=== PATIENT | male | born 1955 | race Caucasian/White ===

== ENCOUNTER 2016-12-16 17:45 | Emergency (ER) | payer MEDICARE ==
[~2016-12-16] VITALS: Ht 180.3 cm; Wt 83.4 kg
[~2016-12-16 17:45] MED LIST: ASPIRIN EC325 MG PO; ATORVASTATIN CA20 MG; ATORVASTATIN CA40 MG PO; ATORVASTATIN CA80 MG PO; CARVEDILOL3.125 MG; CARVEDILOL3.125 MG PO; FISH OIL 1,0001 EAC7 PO; LO-DOSE ASPIRIN81 M1 PO; LOW DOSE ASPIRI81 M2 PO; PERCOCET 5/31 TABLET PO; VITAMIN B12 100MCG PO
[2016-12-16] MEDS ORDERED: PREDNISONE50 MG PO (20:19)
[2016-12-16] MEDS ORDERED: PERCOCET 5/31 TABLET PO (20:19)
[2016-12-16] MEDS ORDERED: INDOCIN50 MG PO (20:19)
[2016-12-16 20:23] VITALS: BP 131/81
== END 2016-12-16 20:44 | disposition home or self-care (01) ==
LOC: EME 17:45
DX: M10.9 Gout, unspecified (principal); I10 Essential (primary) hypertension; F17.200 Nicotine dependence, unspecified, uncomplicated
CPT/HCPCS: 73630; 99281; 99284